=== PATIENT | male | born 1990 | race Caucasian/White ===

== ENCOUNTER 2020-08-06 05:27 | Day surgery (SDC) | payer OTHER ==
[~2020-08-06 05:27] MED LIST: CEFAZOLIN 2 GM/D5W RTU 2 GM/50 ML RTUPB IV PRN; LACTATED RINGERS 1000 ML IV PRN; LIDOCAINE 0.5% INJ-PF (5 MG/ML) 50 ML SDV SUBCUT PRN
[2020-08-06] MEDS ORDERED: CEFAZOLIN 2 GM/D5W RTU 2 GM/50 ML RTUPB IV ONE (05:36)
[2020-08-06] MEDS ORDERED: ONDANSETRON HCL INJ/PF 4 MG/2 ML SDV ONE (06:52)
[2020-08-06] MEDS ORDERED: FENTANYL CITRATE INJ/PF 100 MCG/2 ML AMPUL ONE (06:52)
[2020-08-06] MEDS ORDERED: PROPOFOL INJ 200 MG/20 ML VIAL IV ONE (06:52)
[2020-08-06] MEDS ORDERED: DEXAMETHASONE SOD PHOSPHATE INJ 4 MG/1 ML VIAL ONE (06:52)
[2020-08-06] MEDS ORDERED: MIDAZOLAM 2 MG/2 ML INJ ONE (06:52)
[2020-08-06] MEDS ORDERED: ROPIVACAINE HCL 0.5% INJ/PF (5 MG/1 ML) 30 ML SDV ONE (06:57)
[2020-08-06] MEDS ORDERED: DIPHENHYDRAMINE HCL 50 MG/ML VIAL IV PRN (08:04)
[2020-08-06] MEDS ORDERED: MEPERIDINE HCL/PF INJ 25 MG/1 ML DISP.SYRIN IV PRN (08:04)
[2020-08-06] MEDS ORDERED: MORPHINE SULFATE 10 MG/ML INJ IV PRN (08:04)
[2020-08-06] MEDS ORDERED: FENTANYL CITRATE INJ/PF 100 MCG/2 ML AMPUL IV PRN ×3 (08:04)
[2020-08-06] MEDS ORDERED: OXYCODONE-ACETAMINOPHEN 5-325 MG TABLET PO PRN ×2 (08:04)
[2020-08-06] MEDS ORDERED: PROMETHAZINE HCL INJ 25 MG/1 ML VIAL IV PRN ×2 (08:04)
[2020-08-06] MEDS ORDERED: BUPIVACAINE HCL 0.5%-EPI 1:200000 INJ/PF 30 ML VIAL ONE (09:10)
[2020-08-06] MEDS ORDERED: BUPIVACAINE HCL 0.5 % INJ/PF 30 ML SDV ONE (09:10)
--- NOTE | 2020-08-06 10:13 | Operative Report ---
Operative Report DATE OF SURGERY: 08/06/20 Operative Report: SURGEON Jimi Guardado D.O. PREOPERATIVE DIAGNOSES Right shoulder anterior inferior labral tear Right shoulder SLAP tear Right shoulder biceps tendinitis POSTOPERATIVE DIAGNOSES Right shoulder anterior inferior labral tear,3-5 O'clock Right shoulder Type II SLAP tear Right shoulder biceps tendinitis IMPLANTS Arthrex 3.0 mm knotless SutureTaks x3. Arthrex unicortical button (biceps tenodesis) ESTIMATED BLOOD LOSS 5 cc. FLUIDS See anesthesia record COMPLICATIONS None. CONDITION Stable to postanesthesia care unit (PACU). INDICATIONS FOR SURGERY The patient is a 30-year-old male [employer] who an injury to his right shoulder. He complains of pain and instability since the injury. He failed physical therapy and injections and elected to proceed with a right shoulder arthroscopy with labral repair and possible biceps tenodesis, open. We discuss all the risks, benefits and alternatives including doing nothing. Those include but are not limited to bleeding, infection, blood vessel or nerve damage, DVT, anesthesia risks, stiffness, possibility of incomplete relief of symptoms, hardware failure and incomplete relief of pain. He still elected to proceed with the affirmation procedure and consent was obtained. DETAILS OF PROCEDURE The patient was met in the preoperative holding area where the operative extremity was marked. He was taken to the operative suite where anesthesia was administered and preoperative antibiotics were given. An examination of the stability of the shoulder was performed with the patient relaxed. This did show signs of anterior inferior instability. We then placed him in the left lateral decubitus position with the pegboard and the arm was placed in a traction abduction apparatus. The operative extremity was prepped and draped in usual sterile fashion. A surgical timeout was performed with the entire surgical team and the incisions were drawn out. An incision was made a little lateral off the tip of the posterolateral acromion. The arthroscope was then inserted into the shoulder joint using a blunt trocar through the posterior capsule. The trocar was then replaced by the scope. The camera and source light and inflow monitor were connected to the sheath. The pressure was kept at 30 mmHg. Anterior portal was established at the rotator interval under direct visualization. A spinal needle was introduced from the outside and identified from the inside. An inc ision was made and an anterior cannula was introduced. The biceps tendon was visualized and found to be intact but flattened and inflamed, there was a clear SLAP tear that extended anteriorly to the 5 o'clock position. It also extended posteriorly to approximately the 10:30 position. The rotator interval was assessed as well as the rotator cuff. There was no tearing of the rotator cuff, supraspinatus, infraspinatus and teres minor or subscapularis. The glenoid was visualized and there was mild grade I chondromalacia, the humeral head was visualized and there was no obvious pathology. Turning my attention back to the SLAP tear and biceps, the biceps tendon was cut using the arthroscopic scissors. Using a shaver and cautery the remaining portion of the biceps was taken back to stable edge and the SLAP tear was carefully debrided to stable edge, probing the SLAP afterwards showed that it remained stable and did not fall into the GH joint. Next, the arthroscopic elevator was used to elevate the labral tissue off the bone to be able to effectively mobilize the tissue up for a stable repair. Then using a rasp, the bony surface was rasped and lightly debrided using the shaver to a bleeding bony surface. Using a long spinal needle, through the inferior aspect of the anterior portal for the inferior 5 o'clock anchor to be placed. After adequate positioning was identified with the needle, a Nitinol wire was placed, the cannulated switching stick was placed over the nitinol wire and the nitinol wire was removed. Next a cannulated drill guide was placed over the cannulated switching stick. The cannulated drill guide was in the 5 o'clock position right at the edge of the tear. Once appropriate position was confirmed the drill fo the 3.0 mm knotless SutureTak placed and drilled.. The SutureTak was placed and using a Suture Lasso the anterior-inferior tissue was carefully grasped and the Suture Lasso was passed through this tissue. Passing the suture from the SutureTak, through this, carefully avoiding any twists or knots. A second 3.0mm anchor was placed using the same technique in the 4 o'clock position. Next, I probed the labral tear and felt that an additional anchor at the 3 o'clock position would be beneficial. Lastly, I placed a 3rd suturetak in the 3 clock position. I rechecked tension prior to cutting the suture tails. The suture tails were then cut. I placed my shaver and carefully debrided any loose debris. The shoulder wound was copiously irrigated throughout the case. All bleeders were cauterized. Final images were taken. The instruments were then removed from the shoulder and I turned my attention to the anterior aspect of the humerus where an incision was marked out at the base of the pectoralis major. Next, 8cc of 0.5% Marcaine with epinephrine was injected at the site. An incision was made in the axillary fold just inferior to the pectoralis major. Blunt dissection was carried out and hemostasis was achieved with electrocautery. The bicipital groove was identified. The biceps tendon was easily palpable within it groove and was carefully pulled out of the incision. A longitudinal tear and significant inflammation and flattening of the tendon noted. Using a whipstitch at the musculotendinous junction, 5 stitches were placed, locking the last stitch and cutting any remaining tendon. Then placed blunt Homans gently over the anterior and medial portion of the humerus identifying the biceps groove. A curette the biceps groove was curetted down to bleeding bone to provide a good bed for healing of the tendon. I then drilled a hole at the most proximal aspect that could be safely reached in the groove. The sutures were threaded through the Arthrex unicortical button and the button was placed in the drill hole and carefully cinched down to appropriate tension. The bottom remained well fixed and the tension was appropriate. The sutures were tied and cut. The wound was copiously irrigated. All bleeders were cauterized. Using a 2-0 Monocryl, the subcutaneous tissue was closed and using 3-0 Monocryl the arthroscopic incision as well as the anterior incisions were closed subcuticularly. Steri-Strips were applied. A sterile dressing was applied followed by a sling. The patient was awoken from anesthesia without complication and taken to the postanesthesia care unit (PACU) in stable condition. POSTOPERATIVE PLAN 1. The patient will follow the rehab protocol for anterior/inferior labral repair and biceps tenodesis. 2. I will see him in 10-14 days for his first postoperative follow-up. PREOPERATIVE DIAGNOSIS: Right shoulder anterior inferior labral tear, SLAP tear and biceps tenodesis POSTOPERATIVE DIAGNOSIS: Right shoulder type II SLAP tear, anterior inferior labral tear 35:00, biceps tendinitis OPERATION: Shoulder arthroscopy with SLAP debridement, anterior inferior labral repair and open subpectoral biceps tenodesis SURGEON: JIMI GUARDADO ANESTHESIA: GA ESTIMATED BLOOD LOSS: 5 sees INTRAOPERATIVE FINDINGS: See dictation
--- NOTE | 2020-08-06 10:16 | Discharge Summary ---
Discharge Summary (SDC) - Discharge Final Diagnosis: Right shoulder type II SLAP tear, anterior inferior labral tear and biceps tendinitis Date of Surgery: 08/06/20 Condition: Good Treatment or Instructions: [facility] Arvind Sanchez LCDR Bryce Holloway, DO Shoulder Surgery Post-Operative Instructions Pain Control: Pain after surgery is to be expected. If you did not apple picker your pain medications at your preop appointment, please let your surgeon or our clinic nurse know immediately. Oxycodone should be taken in the form of 1 tablet every 6 hours as needed. You will also have tylenol 325mg, you may take 1-2 tablets every 6 hours. I suggest alternating medications every 3 hours. First Oxycodone, then 3 hours later [address]. That way you are taking pain medication every 3 hours. You will likely need this frequently for the first few days after surgery, however as the pain improves, begin to wean off the medication. If you received a pain block from anesthesia, take pain medication prior to going to sleep on the day of surgery as these blocks typically wear off in the middle of the night. You have also been provided with a stool softener (Colace). Take this daily to prevent constipation resulting from the oxycondone. The third medication (Zofran) is to take as needed for nausea. Activity: Keep your shoulder in the sling provided at all times except for showering/bathing and performing pendulum exercises. These are to be performed 3-4 times daily for 5-10 minutes. Only let the arm hang and do not actively use the shoulder muscles. Perform hand gripping and forearm rotation several times daily in the sling. Your specific rehab protocol will be discussed at your first physical therapy session. Dressings/Wound Care: Keep dressings/bandages in place until the THIRD post operative day (at least 72 hours from the time of surgery) unless otherwise instructed. Keep dressings clean and dry. After removal you may cover the wounds with band-aids or gauze however this not required. It is not necessary to apply any ointments or creams. Showering: Once dressings have been removed after 72 hours, you may shower by letting water run over the wounds. Do not scrub the wounds. NO SUBMERGED BATHING IN HOT TUBS, POOLS, OCEANS, BATHTUBS for 4 weeks after surgery. Physical Therapy: You will be instructed on specific rehab protocols for the procedures performed which will begin at approximately 3-5 days post-operatively unless otherwise instructed. This will be discussed in greater detail at your first follow up appointment. Diet: Resume your regular diet after surgery. Increase use of fiber and drink plenty of fluids to prevent constipation from the anesthesia and narcotics. Avoid the use of supplements however multi-vitamins may be taken. Do not drink alcohol while taking narcotic pain medication. Convalescent Leave/Driving: You have been provided with 30 days of convalescent leave. Use this time to recover from surgery. We strongly recommend against automobile travel longer than 2 hours or airline travel within the first 2 weeks of surgery due to increased risk of blood clots. NO DRIVING OR OPERATING MACHINERY WHILE TAKING NARCOTIC PAIN MEDICATION. Follow Up: You should have an appointment scheduled with your surgeon around 10-14 days from the day of surgery, as previously scheduled. If not, please contact our clinic as soon as possible. RETURN TO THE CLINIC OR EMERGENCY ROOM FOR THE FOLLOWING: * Increasing pain or swelling not relieved by medication, ice, or elevation * Redness, warmth, increased incision tenderness, drainage, or foul smell * Bleeding that does not stop * Numbness in the arm or hand * Temperature >101.4F * Any other concerns Questions? Email me at [email or web address] or call the office using the number above Discharge Diet: As Tolerated Respiratory Treatments at Home: Deep Breathing/Coughing Discharge Activity: Activity As Tolerated - With sling on at all times except while performing pendulum exercises and hygiene and physical therapy Home Care Assistance: None Needed Report the Following to Your Physician Immediately: Shortness of Breath, Nausea, Vomiting, Fever over 101 Degrees, Redness, Drainage-Yellow
[2020-08-06] MEDS ORDERED: ROCURONIUM BROMIDE INJ 50 MG/5 ML VIAL IV ONE (15:38)
[2020-08-06 17:10] VITALS: BP 117/68
== END 2020-08-06 11:50 | disposition home or self-care (01) ==
LOC: OROUT 05:27
PROVIDERS: ATTEND Orthopaedic Surgery
DX: S43.431A Superior glenoid labrum lesion of right shoulder, initial encounter (principal); V89.9XXA Person injured in unspecified vehicle accident, initial encounter; Y99.1 Military activity; M75.21 Bicipital tendinitis, right shoulder; M94.211 Chondromalacia, right shoulder; Z01.812 Encounter for preprocedural laboratory examination; Z20.822 Contact with and (suspected) exposure to COVID-19
CPT/HCPCS: 87635; 29807; 23430; 29822; J2795; J2250; J3490 ×2; J1100; J3010; J2405; J2704; J0690; C9803; 1630; 64415; 76942; A4649; C1713; L3650